=== PATIENT | female | born 1945 | race Caucasian/White ===

== ENCOUNTER → 2017-10-22 | Outpatient (REF) | payer MEDICARE ==
[2017-10-22 18:11] LABS: VITAMIN B12 LEVEL 569 PG/ML (247-911)
[2017-10-22 20:24] LABS: ERYTHROCYTE SEDIMENTATION RATE 34 mm/hr (0-30)
== END ==
LOC: M LAB REF 17:19
DX: F03.90 Unspecified dementia, unspecified severity, without behavioral disturbance, psychotic disturbance, mood disturbance, and anxiety (principal); G62.9 Polyneuropathy, unspecified
CPT/HCPCS: 82607

== ENCOUNTER → 2018-01-14 | Outpatient (REF) | payer MEDICARE ==
[2018-01-14 17:34] LABS: PLATELET COUNT, AUTOMATED 406 10^3/uL (150-450)
[2018-01-14 17:55] LABS: INR 0.94; PROTHROMBIN TIME 12.7 SECONDS (12.1-14.4)
== END ==
LOC: M LAB REF 16:56
DX: M48.061 Spinal stenosis, lumbar region without neurogenic claudication (principal)
CPT/HCPCS: 85049

== ENCOUNTER → 2018-03-11 | Outpatient (CLI) | payer MEDICARE | LOC: M RAD 10:20 | DX: R93.89 Abnormal findings on diagnostic imaging of other specified body structures (principal); M41.26 Other idiopathic scoliosis, lumbar region; M50.323 Other cervical disc degeneration at C6-C7 level; M51.26 Other intervertebral disc displacement, lumbar region; M51.37 Other intervertebral disc degeneration, lumbosacral region | CPT/HCPCS: 78306 ==

== ENCOUNTER → 2018-03-25 | Outpatient (REF) | payer MEDICARE ==
[2018-03-25 11:50] LABS: BASO % 0.5 % (0.0-1.0); EOS % 0.2 % (0.0-3.0); HEMATOCRIT 36.5 % (36.0-47.0); HEMOGLOBIN 11.7 g/dl (12.0-15.5); LYMPH # 0.9 10^3/uL (1.5-4.5); LYMPH % 11.2 % (24.0-44.0); MEAN CORPUSCULAR HEMOGLOBIN 31.2 pg (27.0-33.0); MEAN CORPUSCULAR HGB CONC 32.1 g/dl (32.0-36.5); MEAN CORPUSCULAR VOLUME 97.3 fl (80.0-96.0); MONO # 0.4 10^3/uL (0.0-0.8); MONO % 5.2 % (0.0-5.0); NEUTROPHILS # 6.8 10^3/uL (1.8-7.7); NEUTROPHILS % 82.5 % (36.0-66.0); PLATELET COUNT, AUTOMATED 405 10^3/uL (150-450); RED BLOOD COUNT 3.75 10^6/uL (4.00-5.40); WHITE BLOOD COUNT 8.2 10^3/uL (4.0-10.0)
[2018-03-25 12:25] LABS: ERYTHROCYTE SEDIMENTATION RATE 3 mm/hr (0-30)
== END ==
LOC: M LABDRAW1 09:59
PROVIDERS: ATTEND Orthopaedic Surgery
DX: M16.12 Unilateral primary osteoarthritis, left hip (principal)

== ENCOUNTER → 2018-04-20 | Outpatient (CLI) | payer MEDICARE ==
[2018-04-20 11:41] LABS: SOURCE, BODY FLUID LT HIP; SYNOVIAL FLUID COLOR RED (YELLOW)
--- NOTE | 2018-04-20 19:40 | REP ---
LEFT HIP ASPIRATION The procedure was performed under the direct supervision of Dr. Cunningham. The risks and benefits of the procedure were explained to the patient and informed consent was obtained. The left femoral neck was localized using fluoroscopic guidance. The skin was prepped and draped in a sterile fashion. 1% lidocaine was used as a local anesthetic. Using fluoroscopic guidance a 22-gauge spinal needle was inserted and advanced to the femoral neck. A few drops of red colored aspirate was obtained and sent to the lab for analysis. The patient tolerated the procedure well and there were no immediate complications. Less than 6 seconds of fluoroscopy time was utilized for this procedure. Reviewed by JEREMIAH Pathak 04/20/2018 03:13 P Electronically Signed by Reji Cunningham MD 04/20/2018 07:31 P
== END ==
LOC: M RADPRO 10:12
PROVIDERS: ATTEND Physician Assistant Medical
DX: M16.12 Unilateral primary osteoarthritis, left hip (principal); M25.552 Pain in left hip

== ENCOUNTER → 2018-04-20 | Outpatient (CLI) | payer MEDICARE | LOC: M LAB 12:03 | PROVIDERS: ATTEND Physician Assistant Medical | DX: M16.12 Unilateral primary osteoarthritis, left hip (principal); Z53.8 Procedure and treatment not carried out for other reasons ==

== ENCOUNTER → 2018-07-19 | Outpatient (CLI) | payer MEDICARE ==
[~2018-07-19] MED LIST: HYDR-3713 PO; MEMA1TAB2 PO; SERT25TA85 PO; SIMV5TAB12 PO
[2018-07-19 13:48] LABS: HEMATOCRIT 37.2 % (36.0-47.0); HEMOGLOBIN 12.1 g/dl (12.0-15.5); MEAN CORPUSCULAR HGB CONC 32.5 g/dl (32.0-36.5); MEAN CORPUSCULAR VOLUME 95.4 fl (80.0-96.0); PLATELET COUNT, AUTOMATED 334 10^3/uL (150-450); WHITE BLOOD COUNT 7.9 10^3/uL (4.0-10.0)
[2018-07-19 14:05] LABS: INR 0.85; PROTHROMBIN TIME 11.7 SECONDS (12.1-14.4)
[2018-07-19 14:14] LABS: ERYTHROCYTE SEDIMENTATION RATE 31 mm/hr (0-30)
[2018-07-19 14:20] LABS: ALT/SGPT 17 U/L (12-78); BILIRUBIN,TOTAL 0.4 MG/DL (0.2-1.0); BLOOD UREA NITROGEN 14 MG/DL (7-18); CALCIUM LEVEL 9.7 MG/DL (8.8-10.2); CARBON DIOXIDE LEVEL 33 MEQ/L (21-32); CHLORIDE LEVEL 105 MEQ/L (98-107); CREATININE FOR GFR 0.78 MG/DL (0.55-1.30); GLOMERULAR FILTRATION RATE > 60.0 (>39); GLUCOSE, FASTING 84 MG/DL (70-100); POTASSIUM SERUM 4.4 MEQ/L (3.5-5.1); SODIUM LEVEL 141 MEQ/L (136-145)
--- NOTE | 2018-07-19 14:23 | REP ---
REASON: Cardiac symptoms. COMPARISON: Multiple, the latest 05/09/2012, a frontal view of the chest. The cardiomediastinal silhouette is essentially unchanged. The heart is not enlarged. The lung lawrence are clear. No acute patchy parenchymal opacities or pleural effusions have developed. The osseous structures are stable and intact. IMPRESSION: No evidence of acute cardiopulmonary disease. Electronically Signed by Aditya Babin DO 07/19/2018 03:49 P
--- NOTE | 2018-07-21 15:42 | ECGEPIP ---
Stationary ECG Study 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 Electronically Signed On 07-21-2018 15:41:53 EDT by Gildardo Mauricio
== END ==
LOC: M LAB 12:54
PROVIDERS: ATTEND Orthopaedic Surgery
DX: M16.12 Unilateral primary osteoarthritis, left hip (principal); Z79.01 Long term (current) use of anticoagulants

== ENCOUNTER 2018-08-01 08:30 | Inpatient (IN) | payer MEDICARE ==
--- NOTE | 2018-07-21 13:31 | HPE ---
DATE OF ADMISSION: 08/01/2018 CHIEF COMPLAINT: Left hip pain and stiffness. ATTENDING PHYSICIAN: Dr. Glenroy Mitchell HISTORY: This is a 72-year-old female patient with progressively worsening left hip pain and stiffness. She has failed to improve with conservative management. She has elected for surgery for her continued symptoms. She has pain with weightbearing activities and activities of daily living. She has been consented by Dr. Mitchell for a left total hip arthroplasty. Medical optimization Dr. Black. X-rays notable for end-stage degenerative changes with underlying AVN and collapse of the femoral head. ALLERGIES: No known drug allergies. CURRENT MEDICATIONS: - Memantine 10 mg 1 tablet twice a day - Provera 2 puffs four times a day as needed - Pulmicort 90 mcg 1 puff twice a day - Sertraline 50 mg 1 tablet once per day - Zocor 5 mg 1 tablet once per day - [id number] Tylenol Arthritis - ICAPS She was counseled about no use of aspirin or NSAIDs 5 days prior to surgery. MEDICAL HISTORY: Includes end-stage osteoarthritis of the left hip, AVN of the left hip, dementia, asthma, and elevated lipids. PAST SURGICAL HISTORY: Includes dilation and curettage, bunion done on the right side. FAMILY HISTORY: Breast cancer, dementia, coronary artery disease. REVIEW OF SYSTEMS: Denies fever or chills. Denies chest pain, shortness breath or cough. Denies difficulty breathing. Denies abdominal pain. Denies nausea or vomiting. Has persistent pain in her left hip with weightbearing activities and activities of daily living. SOCIAL HISTORY: She does not use alcohol or tobacco. She is retired. PHYSICAL EXAMINATION: Reveals a somewhat alert female patient. She is in no and no acute distress. She is somewhat confused throughout the appointment on the reason for the appointment. Neck is supple without adenopathy or jugular venous distention (JVD). Lungs are clear to auscultation without rales or wheeze. Heart: Regular rate and rhythm. Abdomen: Bowel sounds are present. Height 5 feet 3 inches, weight 122 pounds, temperature 97.8, blood pressure 115/82, respirations 20, pulse 80. Chest x-ray with no acute cardiopulmonary process noted. LABORATORY DATA: PT 11.7, INR 0.85, sed rate of 31, WBC count 7.9, RBC count 3.9, hemoglobin 12.1, hematocrit 37.2, glucose 84., BUN 14, creatinine 0.78, sodium 141, potassium 4.4. IMPRESSION: 1. 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 PLAN: She has been consented by Dr. Mitchell for a left total hip arthroplasty.
[~2018-08-01] VITALS: Ht 160 cm; Wt 55.3 kg
[~2018-08-01 08:30] MED LIST changes: +LR 1,000 ML IV SCH
[2018-08-01] MEDS ORDERED: ceFAZolin 1GM INJ (J0690 PER 500MG) As Ordered ONE (10:21)
[2018-08-01] MEDS ORDERED: TRANEXAMIC ACID 100 MG/ML 10ML VIAL As Ordered ONE (10:21)
[2018-08-01] MEDS ORDERED: BUPIVACAINE LIPOSOME/PF 1.3% 20ML VIAL (13.3MG/ML)(EXPAREL)(C9290 PER1MG) As Ordered ONE (10:21)
[2018-08-01] MEDS ORDERED: EPINEPHrine INJ 1 MG/ML 1ML AMP As Ordered ONE (10:21)
[2018-08-01] MEDS ORDERED: MIDAZOLAM INJ 2 MG/2 ML VIAL (J2250) As Ordered ONE (10:54)
[2018-08-01] MEDS ORDERED: PROPOFOL 200 MG/20 ML VIAL As Ordered ONE (10:54)
[2018-08-01] MEDS ORDERED: PULM90IN INH (11:20)
[2018-08-01] MEDS ORDERED: NON-325T5 PO (11:21)
[2018-08-01] MEDS ORDERED: ceFAZolin 2 GM/D5W 50 ML IV BAG (J0690 PER 500MG) As Ordered ONE (11:39)
[2018-08-01] MEDS ORDERED: fentaNYL 100 MCG/2 ML INJECTION (J3010) As Ordered ONE (11:49)
[2018-08-01] MEDS ORDERED: BUPIVACAINE/DEXTROSE 0.75% 2 ML AMP As Ordered ONE (11:53)
[2018-08-01] MEDS ORDERED: PHENYLephrine HCL 500 MCG/5 ML (100MCG/ML) SYRINGE (J2370) As Ordered ONE (12:45)
[2018-08-01] MEDS ORDERED: ACETAMINOPHEN TAB 650MG DOSE (2X325MG) PO PRN (14:00)
[2018-08-01] MEDS ORDERED: PERCOCET 5MG/325MG TAB PO PRN (14:00)
[2018-08-01] MEDS ORDERED: LR 1,000 ML IV SCH ×2 (14:00)
[2018-08-01] MEDS ORDERED: MORPHINE 4 MG/ML 1ML VIAL/SYRINGE (J2270) IV PRN ×2 (14:00)
[2018-08-01] MEDS ORDERED: fentaNYL 100 MCG/2 ML INJECTION (J3010) IV PRN (14:00)
[2018-08-01] MEDS ORDERED: ONDANSETRON 4MG/2ML VIAL (J2405) IV PRN ×2 (14:00)
[2018-08-01] MEDS ORDERED: FLEET ENEMA PR PRN (14:00)
--- NOTE | 2018-08-01 14:33 | IPN ---
DATE: 08/01/2018 The patient seen and examined. She wished to go ahead with a left total hip arthroplasty. She and her understand the nature of this, the risk of bleeding, infection, damage to nerves, vessels, persistent pain, wear loosening, dislocation, leg length, inequality, blood clots, medical problems, , among others.
[2018-08-01] MEDS: PERCOCET 5MG/325MG TAB PO PRN ×2 (15:13→18:00)
[2018-08-01 16:00] VITALS: BP 158/83
[2018-08-01 16:30] VITALS: BP 142/76
[2018-08-01 17:30] VITALS: BP 138/74
--- NOTE | 2018-08-01 17:32 | REP ---
LEFT HIP, TWO VIEWS: HISTORY: Postop. The patient is status-post left total hip replacement. There is no acute fracture or dislocation. Subcutaneous air and surgical robin are present in the overlying soft tissue. IMPRESSION:The patient is status-post left total hip replacement. There is anatomic alignment. Electronically Signed by Juventino Bravo MD 08/02/2018 08:39 A
--- NOTE | 2018-08-01 18:16 | CR.PDOC ---
General Date of Consultation: Aug 01, 2018 Consultation REASON FOR CONSULTATION/CHIEF COMPLAINT: Medical management of comorbidities. HISTORY OF PRESENT ILLNESS: . 72-year-old female with past medical history of dyslipidemia, asthma, anxiety/depression, dementia, and osteoarthritis was admitted to the orthopedic service for left hip repair. The hospitalist team has been consulted for management of the patient's medical comorbidities. At this time, the patient states that she is feeling well postoperatively, and notes that her pain is relatively well controlled. She denies any acute complaints of fevers, chills, chest pain, palpitations, abdominal pain, or any nausea/vomiting/diarrhea. ALLERGIES: Please see below. HOME MEDICATIONS: Please see below. PAST MEDICAL HISTORY: As noted above PAST SURGICAL HISTORY: Right sided bunionectomy, dilation and curettage SOCIAL HISTORY: Denies any alcohol, tobacco, illicit drug use REVIEW OF SYSTEMS: 10 point review of systems negative unless otherwise specified in HPI PHYSICAL EXAMINATION: VITAL SIGNS: Please see below. GENERAL APPEARANCE: . Awake, alert, in no acute distress HEENT: . Normocephalic, atraumatic RESPIRATORY: . Clear to auscultation bilaterally CARDIOVASCULAR: . Normal rate, normal S1, S2 ABDOMEN: . Soft, nontender, nondistended EXTREMITIES: . Left hip joint with limited range of motion due to recent surgical intervention. Extremity is neurovascularly intact distally LABORATORY DATA: Please see below. ASSESSMENT/PLAN: Status post left hip arthroplasty Pain management, DVT prophylaxis, and postoperative care as per orthopedic surgery History of asthma, stable Continue Pulmicort History of dementia Continue memantine History of dyslipidemia Continue statin Anxiety/depression Continue sertraline DVT prophylaxis As per orthopedic surgery Thank you for allowing us to participate in the care of this patient. Please do not hesitate to call with any questions. Vital Signs/I&O Vital Signs Date Time Temp Pulse Resp B/P (MAP) Pulse Ox O2 Delivery O2 Flow Rate FiO2 08/01/18 18:00 16 08/01/18 17:30 97.3 72 138/74 (95) 98 08/01/18 16:30 2.0 Allergies Coded Allergies: No Known Allergies (Unverified , 07/04/18) Home Medications Scheduled Acetaminophen (Acetaminophen) 325 Mg Tablet, 650 MG PO DAILY for pain or fever for 30 Days, #30 (Reported) Budesonide (Pulmicort Flexhaler) 90 Mcg Aer.pow.ba, 1 PUFF INH BID for 30 Days, #1 (Reported) Memantine HCl (Memantine HCl) 10 Mg Tab, 10 MG PO BID, (Reported) Sertraline Hcl (Sertraline HCl) 25 Mg Tab, 25 MG PO DAILY, (Reported) Simvastatin (Simvastatin) 5 Mg Tab, 5 MG PO QPM, (Reported) Scheduled PRN Hydrocodone/Acetaminophen (Hydrocodone-Acetamin 5-325 mg) 1 Tab Tab, 1 TAB PO Q6H PRN for PAIN, #20 (Reported) MDD 4 ONUR TEJADA MD Aug 01, 2018 18:16
[2018-08-01 18:30] VITALS: BP 115/56
[2018-08-01] MEDS: BUDESONIDE 180MCG INHALER (PULMICORT FLEXHALER) INH SCH (20:00)
[2018-08-01] MEDS ORDERED: SIMVASTATIN 5 MG TAB PO SCH (21:00)
[2018-08-01] MEDS: MEMANTINE 5MG TABLET (NAMENDA) PO SCH (21:02)
[2018-08-01 22:00] VITALS: BP 125/59
[2018-08-02 02:00] VITALS: BP 131/60
[2018-08-02] MEDS: PERCOCET 5MG/325MG TAB PO PRN (05:28)
[2018-08-02 06:00] VITALS: BP 136/71
[2018-08-02] MEDS ORDERED: traMADol 50 MG TAB PO PRN ×2 (06:00)
[2018-08-02] MEDS ORDERED: ACETAMINOPHEN 500 MG TAB PO SCH (06:00)
[2018-08-02 07:06] LABS: HEMATOCRIT 27.9 % (36.0-47.0); HEMOGLOBIN 9.4 g/dl (12.0-15.5); MEAN CORPUSCULAR HEMOGLOBIN 32.3 pg (27.0-33.0); MEAN CORPUSCULAR HGB CONC 33.7 g/dl (32.0-36.5); MEAN CORPUSCULAR VOLUME 95.9 fl (80.0-96.0); PLATELET COUNT, AUTOMATED 279 10^3/uL (150-450); RED BLOOD COUNT 2.91 10^6/uL (4.00-5.40); WHITE BLOOD COUNT 13.4 10^3/uL (4.0-10.0)
[2018-08-02 07:29] LABS: BLOOD UREA NITROGEN 12 MG/DL (7-18); CARBON DIOXIDE LEVEL 29 MEQ/L (21-32); CHLORIDE LEVEL 106 MEQ/L (98-107); CREATININE FOR GFR 0.75 MG/DL (0.55-1.30); GLOMERULAR FILTRATION RATE > 60.0 (>39); GLUCOSE, FASTING 129 MG/DL (70-100); POTASSIUM SERUM 4.2 MEQ/L (3.5-5.1); SODIUM LEVEL 139 MEQ/L (136-145)
[2018-08-02] MEDS: BUDESONIDE 180MCG INHALER (PULMICORT FLEXHALER) INH SCH (08:00)
[2018-08-02] MEDS: MEMANTINE 5MG TABLET (NAMENDA) PO SCH (08:15)
[2018-08-02] MEDS ORDERED: XARE10TA PO (08:43)
[2018-08-02] MEDS ORDERED: TRAM50TA2 PO (08:43)
[2018-08-02] MEDS ORDERED: SERTRALINE HCL 25 MG TABLET PO SCH (09:00)
[2018-08-02] MEDS ORDERED: MOM 30ML SUSPENSION UDC PO SCH (09:00)
[2018-08-02] MEDS ORDERED: MIRALAX *UNIT DOSE* 17GM PACKET PO SCH (09:00)
[2018-08-02] MEDS ORDERED: SENOKOT S TAB PO SCH (09:00)
--- NOTE | 2018-08-02 11:33 | IPNPDOC ---
Subjective Date Seen The patient was seen on 08/02/18. Subjective Chief Complaint/HPI Patient seen and examined at the bedside. No acute overnight events noted. Reports that her left hip pain following surgery is well tolerated at this time. Objective Physical Examination General Exam: Positive: Alert, Cooperative, No Acute Distress ENT Exam: Positive: Atraumatic, Mucous membr. moist/pink Neck Exam: Negative: JVD Chest Exam: Positive: Clear to auscultation, Normal air movement Heart Exam: Positive: Rate Normal, Normal S1, Normal S2 Abdomen Exam: Positive: Soft; Negative: Tenderness Extremity Exam: Positive: Other (left hip joint with limited range of motion secondary to recent surgical intervention. Extremity neurovascularly intact distally.) A-FIB/CHADSVASC A-FIB History Current/History of A-Fib/PAF?: No Assessment /Plan Plan/VTE VTE Prophylaxis Ordered?: Yes Plan Status post left hip arthroplasty Pain management, DVT prophylaxis, and postoperative care as per orthopedic surgery History of asthma, stable Continue Pulmicort History of dementia Continue memantine History of dyslipidemia Continue statin Anxiety/depression Continue sertraline DVT prophylaxis As per orthopedic surgery VS, I&O, 24H, Fishbone Vital Signs/I&O Vital Signs Date Time Temp Pulse Resp B/P (MAP) Pulse Ox O2 Delivery O2 Flow Rate FiO2 08/02/18 06:00 98.0 90 20 136/71 (92) 98 08/01/18 16:30 2.0 I&O- Last 24 Hours up to 6 AM 08/02/18 06:00 Intake Total 2325 ml Output Total 750 ml Balance 1575 ml Laboratory Data 24H LABS Laboratory Tests 2 08/02/18 06:40: Nucleated Red Blood Cells % (auto) 0.0, Anion Gap 4L, Glomerular Filtration Rate > 60.0, Blood Urea Nitrogen 12, Creatinine 0.75, Sodium Level 139, Potassium Level 4.2, Chloride Level 106, Carbon Dioxide Level 29, Calcium Level 8.0L CBC/BMP Laboratory Tests 08/02/18 06:40 Red Blood Count 2.91 L, Mean Corpuscular Volume 95.9, Mean Corpuscular Hemoglobin 32.3, Mean Corpuscular Hemoglobin Concent 33.7, Red Cell Distribution Width 12.5, Calcium Level 8.0 L ONUR TEJADA MD Aug 02, 2018 11:33
--- NOTE | 2018-08-02 14:41 | RO ---
DATE OF PROCEDURE: 08/01/2018 PREOPERATIVE DIAGNOSIS: Left hip avascular necrosis (AVN) with collapse and shortening. POSTOPERATIVE DIAGNOSIS: Left hip avascular necrosis (AVN) with collapse and shortening. PROCEDURE: Left total hip arthroplasty using a [place] high offset size5, +5 36 ball and the 52 acetabular component. SURGEON: Dr. Glenroy Mitchell. HOUSEKEEPER/CUSTODIAN/LAUNDRY WORKER: Dr. Christophe Mcalin ANESTHESIA: Spinal ESTIMATED BLOOD LOSS: 200 mL. COMPLICATIONS: None. INDICATIONS: This a 72-year-old woman with some dementia who has had severe collapse of her left femoral head with AVN. She and her wished to have surgical treatment. They understood the nature of this and the risks associated with it. DESCRIPTION OF PROCEDURE: The patient was taken to the operating room and placed in the right lateral decubitus position after spinal anesthesia was induced. Left lower extremity was prepped and draped the usual sterile fashion. All areas were padded appropriately. A time-out was performed and a longitudinal incision was made over the lateral aspect the hip and sharp dissection was carried down through subcutaneous tissue. I controlled hemostasis with a cautery, incised the fascia ryan and then divided the anterior 40% of the abductor off the anterior aspect of the femur. Care was taken not to split proximally until I could identify the soft tissues. I did not want to get into the superior gluteal nerve and artery, so I dissected around the proximal femur gradually externally rotating it and then exposed the neck and put the leg in the bag. There was no head left at all. It was just basically a blunted off femoral neck. She had significant effusion as well. Once we put the leg in the bag and I could identify the acetabulum, I then sequentially started reaming with a canal initiating reamer, canal finding reamer, lateralizing reamer and then reamed up to a size 5. She had good bony purchase. I was particularly careful because her bone tended to be pretty thin having not been bearing full weight for some time. I then made the neck cut about a half a fingerbreadth up from the lesser trochanter and then exposed the acetabulum. Anterior and posterior retractors were placed. She had somewhat of a pseudo acetabulum superiorly where the neck had been bearing weight. I then removed soft tissue from around the acetabulum and then sequentially reamed up to a 51 and actually ended up with very good concentric reaming and bleeding bone. I did medialized a fair amount but I did have to go very carefully and very gently, again because of the osteopenia likely related to diminished weightbearing. So the pseudo acetabulum actually seemed to be pretty well incorporated in the reaming so I had a good concentric reaming although it was deeper than her [place] acetabulum and I did this intentionally. I was able to ream down to the medial. I then selected the 52 acetabular component, placed in the appropriate amount of anteversion horizontal tilt and seated it down quite nicely. Excellent fit was noted. There was some osteophyte anteriorly that had to be removed. The liner was then place without difficulty. This was a 36 x 52 liner. I impacted this in place, made sure it was well seated. I irrigated multiple times prior to this. I then prepared the canal and sequentially broached up to a size 5, which fit very nicely. I then used the standard and then high offset necks and eventually ended up wit a +5 36 ball. Excellent stability and range of motion was noted. There was full extension external rotation, full flexion internal rotation were all very stable with minimal shuck in full extension. I selected these components, irrigated the canal placed the high offset size 5, impacted it in place, placed the 36 +5 ball, impacted this in place and reduced the hip with the medical assistant cardiology's help and put the hip through a range of motion. I was very pleased with this. I irrigated, placed Exparel in the deeper tissues. I repaired the minimus with #1-0 Vicryl suture, the abductor with #1-0 Vicryl suture with several stitches being placed through bone. Excellent repair was noted. I again irrigated, closed the fascia ryan with #1-0 Vicryl suture and a running Stratafix suture in both directions, subcu with 2-0 Vicryl and the skin with robin. Sterile dressing was applied. She was taken to recovery room in stable condition. There were no known complications. The plan will be routine postop. This is coded as an unusually difficult procedure due to the fact she had an absent femoral head and a high riding femur, which made this technically quite a bit more challenging. The bony tissues were quite soft, which also added to the degree of difficulty and we had a harder time judging length and soft tissue balancing as a result of her long-term shortening of this hip. In addition, she had a pseudo acetabulum that to be dealt with. I did end up using a cluster cup with holes, but did not have to placing the screws. The medical assistant cardiology was instrumental in holding retractors and assisting in reducing and dislocating the hip and assisting in judgment throughout and wound closure.
[2018-08-02] MEDS ORDERED: RIVAROXABAN 10 MG TAB (XARELTO) PO SCH (18:00)
--- NOTE | 2018-08-04 16:08 | DSES ---
DATE OF ADMISSION: 08/01/2018 DATE OF DISCHARGE: 08/02/2018 ATTENDING PHYSICIAN: Dr. Glenroy Mitchell ADMISSION DIAGNOSIS: Left hip avascular necrosis with collapse and shortening. OTHER DIAGNOSES: 1. Dementia. 2. Asthma. 3. Hyperlipidemia. DISCHARGED DIAGNOSIS: Left hip avascular necrosis with collapse and shortening, status post left total hip arthroplasty. HISTORY: The patient is a 72-year-old female that had progressively worsening left hip pain and stiffness. She failed to improve with conservative management. She consented for an elective left total hip arthroplasty with Dr. Mitchell for her continued symptoms. OPERATION PERFORMED: Left total hip arthroplasty. HOSPITAL COURSE: The patient underwent a left total hip arthroplasty under spinal anesthesia which was uneventful. Her hospital course was without complication and she was up with physical therapy per their protocol, weightbearing as tolerated on the left lower extremity. The patient was discharged on oral pain medications and will resume her preoperative medications and diet. The patient will use her thromboembolic-deterrent stockings and take her anticoagulant postoperatively to prevent deep venous thrombosis. She will followup in our office in 12-14 days for a wound check and staple removal. She is encouraged to contact our office sooner if there is any increase in pain, drainage, numbness or tingling in the extremity, redness, fever greater than 101 degrees, or any other concerns. Please see the medical record for additional details.
== END 2018-08-02 12:10 | disposition home or self-care (01) | DRG 470 ==
LOC: M OR 10:09 → M MS5PR 15:30
PROVIDERS: ADMIT Orthopaedic Surgery; ATTEND Orthopaedic Surgery
PROC: 0SRB02Z Replacement of Left Hip Joint with Metal on Polyethylene Synthetic Substitute, Open Approach (ICD-10-PCS; principal; 2018-08-01 12:00)
DX: M16.12 Unilateral primary osteoarthritis, left hip (principal); M87.052 Idiopathic aseptic necrosis of left femur; J45.909 Unspecified asthma, uncomplicated; E78.5 Hyperlipidemia, unspecified; Z79.899 Other long term (current) drug therapy; M85.852 Other specified disorders of bone density and structure, left thigh; G30.9 Alzheimer's disease, unspecified; F02.80 Dementia in other diseases classified elsewhere, unspecified severity, without behavioral disturbance, psychotic disturbance, mood disturbance, and anxiety